=== PATIENT | female | born 1985 | race Two or more races ===

== ENCOUNTER 2019-03-13 06:07 | Emergency (ER) | payer OTHER ==
[~2019-03-13] VITALS: Ht 162.6 cm; Wt 50.8 kg
[2019-03-13 06:13] VITALS: Ht 162.6 cm; Wt 50.8 kg
[2019-03-13 07:15] VITALS: BP 128/79
== END 2019-03-13 07:15 | disposition home or self-care (01) ==
LOC: ED 06:07
DX: S42.001A Fracture of unspecified part of right clavicle, initial encounter for closed fracture (principal); W18.30XA Fall on same level, unspecified, initial encounter; Y93.89 Activity, other specified; Y92.89 Other specified places as the place of occurrence of the external cause; Y99.8 Other external cause status